=== PATIENT | female | born 1995 | race Caucasian/White ===

== ENCOUNTER 2020-11-12 12:33 | Emergency (ER) | payer MEDICAID ==
[~2020-11-12] VITALS: Ht 165.1 cm; Wt 83.9 kg
[2020-11-12 12:33] VITALS: BP_SYST 133
[2020-11-12] MEDS ORDERED: IBUP-1969 PO (13:02)
[2020-11-12 13:10] VITALS: BP_SYST 133
== END 2020-11-12 13:10 | disposition home or self-care (01) ==
LOC: SED 12:33
DX: M67.442 Ganglion, left hand (principal)
CPT/HCPCS: 99283